=== PATIENT | female | born 1990 | race Caucasian/White ===

== ENCOUNTER → 2025-01-31 | Outpatient (REF) | payer OTHER | LOC: M SFHCWAGY 09:51 | PROVIDERS: ATTEND Obstetrics & Gynecology | DX: Z34.93 Encounter for supervision of normal pregnancy, unspecified, third trimester (principal); Z3A.35 35 weeks gestation of pregnancy ==

== ENCOUNTER 2025-02-06 17:53 | Inpatient (IN) | payer OTHER ==
[~2025-02-06] VITALS: Ht 172.7 cm; Wt 85.5 kg
[2025-02-06] MEDS ORDERED: NOXI1TAB PO (18:13)
[2025-02-06] MEDS ORDERED: ZOLO100T PO (18:13)
[2025-02-06] MEDS ORDERED: PRENTAB9 PO (18:13)
[2025-02-06] MEDS ORDERED: ZOLO50TA PO (18:13)
[2025-02-06] MEDS ORDERED: CHOL500T10 PO (18:13)
[2025-02-06 18:14] VITALS: BP 119/74
[2025-02-06] MEDS ORDERED: LIDOCAINE 1% MDV 20 ML VIAL INFIL PRN (18:35)
[2025-02-06] MEDS ORDERED: OXYTOCIN DRIP 30 UNITS in IV 1 EA IV PRN (18:35)
[2025-02-06] MEDS ORDERED: METHYLERGONOVINE MALEATE 0.2 MG/ML 1 ML VIAL IM PRN (18:35)
[2025-02-06] MEDS ORDERED: OXYTOCIN INJ 10UNITS/ML 1ML VIAL IM PRN (18:35)
[2025-02-06] MEDS ORDERED: CARBOPROST TROMETHAMINE 250 MCG/ML AMP IM PRN (18:35)
[2025-02-06] MEDS ORDERED: TRANEXAMIC ACID INJection 1,000 MG in NS 100 ML IV PRN (18:35)
[2025-02-06] MEDS: BETAMETHASONE SOLUSPAN 6 MG/ML 5 ML VIAL IM SCH (18:55)
[2025-02-06 19:19] VITALS: BP 125/69
[2025-02-06 19:32] LABS: PLATELET COUNT, AUTOMATED 232 10^3/uL (150-450)
[2025-02-06 20:26] LABS: HIV 1&2 SCREEN NEGATIVE (NEGATIVE)
[2025-02-06 20:34] LABS: HEPATITIS C VIRUS ABY INDEX < 0.02 INDEX (<0.8)
[2025-02-06 20:44] VITALS: BP 108/56
[2025-02-06 21:18] VITALS: BP 110/63
[2025-02-06] MEDS: SERTRALINE HCL 50 MG TAB PO SCH (21:59)
[2025-02-06 22:29] VITALS: BP 122/72
[2025-02-07] VITALS (34 sets, daily range): BP systolic 89–125; BP diastolic 50–78; O2SAT 95–97
[2025-02-07] MEDS: OXYTOCIN DRIP 30 UNITS in IV 1 EA IV SCH ×2 (01:12→11:00)
[2025-02-07] MEDS: LR 1,000 ML IV SCH (01:12)
[2025-02-07] MEDS: LACTATED RINGER'S 1000 ML IV STA (02:38)
[2025-02-07] MEDS ORDERED: diphenhydrAMINE 50 MG/ML VIAL IV PRN (02:40)
[2025-02-07] MEDS ORDERED: NALOXONE INJ 0.4 MG/1 ML VIAL IV PRN (02:40)
[2025-02-07] MEDS ORDERED: EPIDURAL/PCA KEYS XX PRN (02:40)
[2025-02-07] MEDS ORDERED: LR 500 ML IV PRN (02:40)
[2025-02-07] MEDS ORDERED: ONDANSETRON 4MG 2ML VIAL IV PRN (02:40)
[2025-02-07] MEDS: FENTANYL/ROPIVACAINE/NACL BAG 100 ML EPIDURAL SCH (02:45)
[2025-02-07] MEDS ORDERED: CALCIUM CARBONATE 500 MG CHEW U/D PO PRN (11:00)
[2025-02-07] MEDS ORDERED: DIBUCAINE 1% OINTMENT 30 GM TOP PRN (11:00)
[2025-02-07] MEDS ORDERED: METHYLERGONOVINE MALEATE 0.2 MG TAB PO PRN (11:00)
[2025-02-07] MEDS ORDERED: ANUSOL HC CREAM 30 GM TOP PRN (11:00)
[2025-02-07] MEDS ORDERED: MOM 30 ML SUSPENSION UDC PO PRN (11:00)
[2025-02-07] MEDS ORDERED: DOCUSATE SODIUM 100 MG CAPSULE PO PRN (11:00)
[2025-02-07] MEDS ORDERED: IBUPROFEN 600 MG TAB PO PRN (11:00)
[2025-02-07] MEDS: IBUPROFEN 800 MG TAB PO PRN (13:58)
[2025-02-07] MEDS ORDERED: SERTRALINE HCL 50 MG TAB PO SCH (21:00)
[2025-02-08 05:55] VITALS: BP 117/65; O2SAT 97
[2025-02-08] MEDS ORDERED: HOME MED LIST COMPLETE! XX SCH (07:40)
[2025-02-08] MEDS: PRENATAL VITAMINS CHEWABLE TABLET PO SCH (08:05)
[2025-02-08] MEDS: RHOGAM 300MCG (1500IU) INJ IM SCH (12:41)
[2025-02-08 17:53] VITALS: BP 112/69; O2SAT 94
[2025-02-08] MEDS: ACETAMINOPHEN 500 MG TAB PO PRN (20:23)
[2025-02-09 05:56] VITALS: BP 114/59; O2SAT 98
[2025-02-09] MEDS: ACETAMINOPHEN 325 MG TAB PO PRN (08:50)
== END 2025-02-09 18:53 | disposition home or self-care (01) | DRG 807 ==
LOC: M LDO 17:53 → M LDI 18:34 → M OBS 02-07 12:05
PROVIDERS: ADMIT Advanced Practice Midwife; ATTEND Advanced Practice Midwife
PROC: 10E0XZZ Delivery of Products of Conception, External Approach (ICD-10-PCS; principal; 2025-02-07)
PROC: 0HQ9XZZ Repair Perineum Skin, External Approach (ICD-10-PCS; 2025-02-07)
DX: O60.14X0 Preterm labor third trimester with preterm delivery third trimester, not applicable or unspecified (principal); Z37.0 Single live birth; Z3A.36 36 weeks gestation of pregnancy; O70.0 First degree perineal laceration during delivery

== ENCOUNTER → 2025-03-28 | Outpatient (REF) | payer OTHER ==
[~2025-03-28] MED LIST: CHOL500T10 PO; NOXI1TAB PO; PRENTAB9 PO; ZOLO100T PO; ZOLO50TA PO
== END ==
LOC: M PLALAB 13:10
PROVIDERS: ATTEND Obstetrics & Gynecology
DX: N89.8 Other specified noninflammatory disorders of vagina (principal)